=== PATIENT | female | born 1960 | race Caucasian/White ===

== ENCOUNTER 2020-02-28 17:51 | Emergency (ER) | payer BC ==
[~2020-02-28] VITALS: Ht 177.8 cm; Wt 86.4 kg
[2020-02-28 18:14] VITALS: BP 144/84; Ht 177.8 cm; Wt 86.4 kg
[2020-02-28] MEDS ORDERED: VOLTAREN75 MG PO (18:58)
== END 2020-02-28 19:52 | disposition home or self-care (01) ==
LOC: D.ER 17:51
DX: M76.62 Achilles tendinitis, left leg (principal); E11.9 Type 2 diabetes mellitus without complications; I10 Essential (primary) hypertension; Z72.0 Tobacco use